=== PATIENT | female | born 1960 | race Caucasian/White ===

== ENCOUNTER → 2016-07-06 | Outpatient (CLI) | payer MEDICARE, MEDICAID ==
[~2016-07-06] MED LIST: ATIVAN GENERIC0.5 MG PO; CLOBETASOL PROP0.052 TP; COL-RITE100 M1 PO; DULOXETINE HYDR30 MG PO; LISINOPRIL5 MG NG; RA HI-CAL PLUS1 EACH PO; RANITIDINE HCL150 M1 PO; TRAZODONE50 MG PO; VALACYCLOVIR H500 M1 PO; ZOFRAN ODT4 MG PO; [UNRECOGNIZED DRUG - OTHER] TP
--- NOTE | 2016-07-06 11:50 | RADIOLOGY REPORT PS360 ---
CT ABD PELVIS W/O CONTRAST ORDERING PHYSICIAN : Otis Yoo MD PATIENT AGE: 56 years GENDER: Female INDICATION: ABD PAIN, nauseaLoss of appetite. TECHNIQUE: Helical CT scanning performed the abdomen and pelvis with no IV contrast. Oral contrast is utilized COMPARISON: None FINDINGS Lung bases clear. Heart normal size Abdomen/pelvis Lack of oral and IV contrast decreases sensitivity No acute findings in the abdomen or pelvis Liver, spleen pancreas, adrenals unremarkable. Gallbladder. No calcified stones no inflammatory changes. Common duct normal diameter. Kidneys with no urinary tract calculi nor obstruction GI tract Prominent increase stool stool is seen throughout the colon.Most evident right colon. Reflects constipation.. Also Redundant stool-filled sigmoid colon. Small bowel normal caliber.. Unremarkable. Stomach overall satisfactory but note. Moderate distention with contrast in stomach. Upper normal wall thickness stomach Appendix visualized and normal. Low-lying cecum at right pelvis. Terminal ileum unremarkable.. Osseous. Degenerative disc changes L5/S1. Spondylosis. No significant osseous findings or lesions. Minor dextrocurvature thoracolumbar spine. IMPRESSION: No acute findings abdomen pelvis Prominent increase stool is seen throughout the colon most evident right colon. Constipation.. No bowel obstruction. No urinary tract calculi or obstruction. No mass. No adenopathy.
== END ==
LOC: RAD 09:46
DX: R11.0 Nausea (principal); R10.13 Epigastric pain